=== PATIENT | female | born 1965 | race Caucasian/White ===

== ENCOUNTER 2020-02-12 11:29 | Emergency (ER) | payer OTHER ==
--- NOTE | 2020-02-12 12:09 | RAD ---
CHEST 1 VIEW PORTABLE: Date: 02/12/2020 HISTORY: Cough and weakness. FINDINGS: Heart size is normal. The lungs are clear. No confluent pneumonia, overt edema, or pleural effusion. IMPRESSION: No significant acute intrathoracic disease. No evidence for pneumonia. POS: [facility]
== END 2020-02-12 14:06 | disposition home or self-care (01) ==
LOC: ERS 11:29
DX: J02.9 Acute pharyngitis, unspecified (principal); F31.9 Bipolar disorder, unspecified; F17.210 Nicotine dependence, cigarettes, uncomplicated
CPT/HCPCS: 71045; 87081; 87430; 87804; U0001